=== PATIENT | female | born 1945 | race Caucasian/White ===

== ENCOUNTER 2017-10-24 11:11 | Outpatient (CLI) | payer OTHER | END 2017-10-24 11:25 | disposition home or self-care (01) | LOC: MRI 11:11 | DX: M25.561 Pain in right knee (principal) | CPT/HCPCS: 73718 ==

== ENCOUNTER → 2019-04-21 | Emergency (ER) | payer OTHER ==
[~2019-04-21] VITALS: Ht 152.4 cm; Wt 49.0 kg
[~2019-04-21] MED LIST: MICROZIDE12.5 MG PO; TOPROL XL50 M1 PO; VOLTAREN100 GM TP; ZESTRIL2.5 MG PO
== END | disposition home or self-care (01) ==
LOC: ER 11:19
DX: M54.31 Sciatica, right side (principal)